=== PATIENT | female | born 1970 | race Caucasian/White ===

== ENCOUNTER 2016-11-13 10:28 | Day surgery (SDCO) | payer MEDICARE, OTHER ==
[~2016-11-13] VITALS: Ht 157.5 cm; Wt 97.6 kg
[2016-11-13 11:14] LABS: CREATININE 0.6 mg/dL (0.5-1.0); POTASSIUM 4.3 mmol/L (3.5-5.1)
[2016-11-14 06:56] LABS: HGB 11.2 g/dl (12.5-16.0); MCH 29.3 pg (25.0-31.0); MCV 91.6 fL (78.0-100.0); MPV 10.4 fL (6.0-9.5); RBC 3.82 M/uL (4.20-5.40); RDW 13.3 % (11.5-14.0); WBC 15.1 K/uL (4.0-10.5)
[2016-11-14 07:27] LABS: ALBUMIN 3.7 g/dL (3.5-5.0); BILIRUBIN - TOTAL 0.7 mg/dL (0.1-1.0); CREATININE 0.7 mg/dL (0.5-1.0); GLOBULIN (CALCULATION) 2.3 g/dL (2.2-4.2); POTASSIUM 4.5 mmol/L (3.5-5.1)
[2016-11-14 10:38] LABS: AMYLASE 16 U/L (28-100); LIPASE 10 U/L (13-60)
[2016-11-15 05:18] LABS: HCT 32.9 % (37.0-47.0); HGB 10.4 g/dl (12.5-16.0); MCH 29.1 pg (25.0-31.0); MCHC 31.6 g/dL (32.0-36.0); MCV 92.2 fL (78.0-100.0); MPV 10.2 fL (6.0-9.5); RBC 3.57 M/uL (4.20-5.40); RDW 13.3 % (11.5-14.0); WBC 13.1 K/uL (4.0-10.5)
[2016-11-15] MEDS ORDERED: ASPIRIN CHEWABL81 MG PO (09:43)
[2016-11-15] MEDS ORDERED: ATARAX25 MG PO (09:43)
[2016-11-15] MEDS ORDERED: PLAVIX75 MG PO (09:44)
[2016-11-15] MEDS ORDERED: DIGITEK125 MCG PO (09:44)
[2016-11-15] MEDS ORDERED: BACLOFEN 10MG T10 MG PO (09:44)
[2016-11-15] MEDS ORDERED: TOPROL XL 25MG25 MG PO (09:44)
[2016-11-15] MEDS ORDERED: ZOCOR20 MG PO (09:44)
[2016-11-15] MEDS ORDERED: LASIX40 MG PO (09:45)
[2016-11-15] MEDS ORDERED: LYRICA100 MG PO (09:45)
[2016-11-15] MEDS ORDERED: CARAFATE1 GM PO (09:45)
[2016-11-15] MEDS ORDERED: PROZAC20 MG PO (09:45)
[2016-11-15] MEDS ORDERED: PROTONIX 40MG T40 MG PO (09:46)
[2016-11-15] MEDS ORDERED: ZOFRAN4 MG PO (09:46)
[2016-11-15] MEDS ORDERED: CERTAGEN1 EACH PO (09:46)
[2016-11-15] MEDS ORDERED: AMBIEN10 MG PO (09:46)
[2016-11-15] MEDS ORDERED: K-DUR20 MEQ PO (09:46)
[2016-11-15] MEDS ORDERED: ROPINIROLE HCL3 MG PO (09:46)
[2016-11-15] MEDS ORDERED: NORCO 5-325 TA1 EACH PO (09:47)
== END 2016-11-15 11:35 | disposition home or self-care (01) ==
LOC: FAS 10:28 → FMS 17:15
PROVIDERS: ADMIT Surgery
DX: K81.1 Chronic cholecystitis (principal); R56.9 Unspecified convulsions; Z88.8 Allergy status to other drugs, medicaments and biological substances; Z79.82 Long term (current) use of aspirin; F41.9 Anxiety disorder, unspecified; M79.7 Fibromyalgia; Z79.01 Long term (current) use of anticoagulants; Z79.02 Long term (current) use of antithrombotics/antiplatelets; Z98.890 Other specified postprocedural states; G47.30 Sleep apnea, unspecified; Z95.1 Presence of aortocoronary bypass graft; I50.9 Heart failure, unspecified; E78.00 Pure hypercholesterolemia, unspecified; I25.2 Old myocardial infarction; I11.0 Hypertensive heart disease with heart failure
CPT/HCPCS: 36415; 74022; 74300; 80048; 80053; 82150; 83690; 88304; 93005; 94010; 94762; G0378; J0131; J1170; J2405; J2704; J3010; Q9962

== ENCOUNTER → 2017-02-26 | Day surgery (SDC) | payer MEDICARE, OTHER ==
[~2017-02-26] VITALS: Ht 157.5 cm; Wt 100.9 kg
[~2017-02-26] MED LIST: AMBIEN10 MG PO; ASPIRIN CHEWABL81 MG PO; ATARAX25 MG PO; BACLOFEN 10MG T10 MG PO; CARAFATE1 GM PO; CERTAGEN1 EACH PO; DIGITEK125 MCG PO; K-DUR20 MEQ PO; LASIX40 MG PO; LYRICA100 MG PO; NORCO 5-325 TA1 EACH PO; PLAVIX75 MG PO; PROTONIX 40MG T40 MG PO; PROZAC20 MG PO; ROPINIROLE HCL3 MG PO; TOPROL XL 25MG25 MG PO; ZOCOR20 MG PO; ZOFRAN4 MG PO
[2017-02-26 07:36] LABS: CREATININE 0.7 mg/dL (0.5-1.0); POTASSIUM 4.4 mmol/L (3.5-5.1)
== END | disposition home or self-care (01) ==
LOC: FAS 07:30
PROVIDERS: Anesthesiology
DX: K22.70 Barrett's esophagus without dysplasia (principal); K29.80 Duodenitis without bleeding; K29.60 Other gastritis without bleeding; K21.0 Gastro-esophageal reflux disease with esophagitis; K44.9 Diaphragmatic hernia without obstruction or gangrene; M19.90 Unspecified osteoarthritis, unspecified site; I25.2 Old myocardial infarction; I11.0 Hypertensive heart disease with heart failure; I50.9 Heart failure, unspecified; I25.5 Ischemic cardiomyopathy; I34.0 Nonrheumatic mitral (valve) insufficiency; M79.7 Fibromyalgia; G47.30 Sleep apnea, unspecified; F41.9 Anxiety disorder, unspecified; F32.9 Major depressive disorder, single episode, unspecified; Z85.43 Personal history of malignant neoplasm of ovary; Z85.048 Personal history of other malignant neoplasm of rectum, rectosigmoid junction, and anus; Z83.3 Family history of diabetes mellitus; Z81.1 Family history of alcohol abuse and dependence; Z83.49 Family history of other endocrine, nutritional and metabolic diseases; Z80.49 Family history of malignant neoplasm of other genital organs; Z82.3 Family history of stroke; Z98.84 Bariatric surgery status; Z88.5 Allergy status to narcotic agent; Z95.1 Presence of aortocoronary bypass graft; Z95.0 Presence of cardiac pacemaker; Z98.51 Tubal ligation status; Z79.82 Long term (current) use of aspirin; Z79.02 Long term (current) use of antithrombotics/antiplatelets; Z79.899 Other long term (current) drug therapy; Z98.890 Other specified postprocedural states
CPT/HCPCS: 36415; 80048; 84703; J2704

== ENCOUNTER 2020-09-25 13:29 | Emergency (ER) | payer MEDICARE ==
[~2020-09-25 13:29] MED LIST changes: +ASPIR-LOW81 MG PO; +BACTRIM DS TAB1 EAC1 PO; +BENADRYL25 MG PO; +BENTYL10 MG PO; +CELEBREX100 MG PO; +ENTRESTO 49 MG1 EACH PO; +FIBER; +FLEXERIL5 MG PO; +GLUCOPHAGE XR500 MG PO; +IBUPROFEN800 MG PO; +LIDOCAINE-PRIL1 EACH TOP; +LYRICA 150MG C150 MG PO; +LYRICA 50MG CAP50 MG PO; +MIRAPEX0.25 MG PO; +MIRAPEX1 MG PO; +MOBIC15 MG PO; +MOBIC7.5 MG PO; +NITROQUIK SL0.4 MG SL; +ONE DAILY COMP1 EACH PO; +PAMELOR25 MG PO; +PROBIOTIC1 EAC1 PO; +PROTONIX40 M1 PO; +ROPINIROLE HCL6 MG PO; +STOOL SOFTENER1 EACH PO; +TIZANIDINE HCL4 M1 PO; +VITAMIN B-12500 MCG PO; +VITAMIN D35000 UNIT PO
[2020-09-25 14:16] LABS: BASOPHIL 0.5 % (0-2); EOSINOPHIL 1.1 % (0-5); HCT 42.6 % (37.0-47.0); HGB 13.8 g/dl (12.5-16.0); LYMPHOCYTE 38.2 % (15-48); MCH 29.9 pg (25.0-31.0); MCHC 32.4 g/dL (32.0-36.0); MCV 92.2 fL (78.0-100.0); MONOCYTE 6.5 % (0-12); MPV 10.6 fL (6.0-9.5); NEUTROPHIL 53.5 % (41-80); NRBC 0; PLT 294 K/uL (150-400); RBC 4.62 M/uL (4.20-5.40); RDW 13.1 % (11.5-14.0); WBC 10.3 K/uL (4.0-10.5)
[2020-09-25 14:35] LABS: ALBUMIN 3.7 g/dL (3.4-5.0); BILIRUBIN - TOTAL 0.4 mg/dL (0.2-1.0); BUN/CREAT RATIO (CALC) 16.5 RATIO; CREATININE 0.91 mg/dL (0.51-0.95); GLOBULIN (CALCULATION) 4.2 g/dL; POTASSIUM 3.7 mmol/L (3.5-5.1); TOTAL PROTEIN 7.9 g/dL (6.4-8.2)
[2020-09-25 14:47] LABS: INR 1.04 (0.9-1.2); PROTHROMBIN TIME 12.9 SECONDS (11.4-13.6); PTT 25.1 SECONDS (22.2-34.7)
== END 2020-09-25 17:50 | disposition home or self-care (01) ==
LOC: FER 13:29
PROVIDERS: Emergency Medicine
DX: R07.89 Other chest pain (principal)
CPT/HCPCS: 36415; 71045; 71275; 80053; 84484; 85025; 85379; 85610; 85730; 93005; J2270; J2405; Q9967

== ENCOUNTER 2020-11-04 21:46 | Emergency (ER) | payer MEDICARE, OTHER ==
[2020-11-04 22:39] LABS: BASOPHIL 0.5 % (0-2); EOSINOPHIL 0.9 % (0-5); HCT 41.5 % (37.0-47.0); HGB 13.5 g/dl (12.5-16.0); LYMPHOCYTE 38.6 % (15-48); MCH 29.7 pg (25.0-31.0); MCHC 32.5 g/dL (32.0-36.0); MCV 91.2 fL (78.0-100.0); MONOCYTE 6.7 % (0-12); MPV 10.4 fL (6.0-9.5); NEUTROPHIL 52.9 % (41-80); NRBC 0; PLT 319 K/uL (150-400); RBC 4.55 M/uL (4.20-5.40); RDW 13.2 % (11.5-14.0); WBC 10.1 K/uL (4.0-10.5)
[2020-11-04 22:58] LABS: ALBUMIN 3.9 g/dL (3.4-5.0); BILIRUBIN - TOTAL 0.5 mg/dL (0.2-1.0); BUN/CREAT RATIO (CALC) 33.3 RATIO; CREATININE 0.66 mg/dL (0.51-0.95); POTASSIUM 3.6 mmol/L (3.5-5.1); TOTAL PROTEIN 7.9 g/dL (6.4-8.2)
[2020-11-04 23:01] LABS: INR 1.2 (0.9-1.2); PROTHROMBIN TIME 14.4 SECONDS (11.4-13.6)
== END 2020-11-05 01:20 | disposition other institution (70) ==
LOC: FER 21:46
PROVIDERS: Emergency Medicine
DX: I21.3 ST elevation (STEMI) myocardial infarction of unspecified site (principal); R79.89 Other specified abnormal findings of blood chemistry; I11.0 Hypertensive heart disease with heart failure; I50.9 Heart failure, unspecified; E11.9 Type 2 diabetes mellitus without complications; E78.5 Hyperlipidemia, unspecified; Z95.810 Presence of automatic (implantable) cardiac defibrillator; Z88.6 Allergy status to analgesic agent; Z79.899 Other long term (current) drug therapy
CPT/HCPCS: 36415; 71045; 80053; 83735; 83880; 84484; 85025; 85610; 85730; 93005; J1644; J2405

== ENCOUNTER 2021-06-15 07:40 | Emergency (ER) | payer MEDICARE, OTHER ==
[2021-06-15 08:44] LABS: BASOPHIL 0.1 % (0-2); EOSINOPHIL 0.3 % (0-5); HCT 41.3 % (37.0-47.0); HGB 12.9 g/dl (12.5-16.0); LYMPHOCYTE 20.5 % (15-48); MCH 29.2 pg (25.0-31.0); MCHC 31.2 g/dL (32.0-36.0); MCV 93.4 fL (78.0-100.0); MONOCYTE 8.3 % (0-12); MPV 10.9 fL (6.0-9.5); NEUTROPHIL 70.5 % (41-80); NRBC 0; PLT 225 K/uL (150-400); RBC 4.42 M/uL (4.20-5.40); RDW 13.3 % (11.5-14.0); WBC 7.6 K/uL (4.0-10.5)
[2021-06-15 08:49] LABS: INR 1.06 (0.9-1.2); PROTHROMBIN TIME 13.2 SECONDS (11.8-13.4); PTT 31.7 SECONDS (24.4-34.7)
[2021-06-15 08:50] LABS: D-DIMER 0.98 ug/mLFEU (0.00-0.41)
[2021-06-15 08:51] LABS: LACTIC ACID 2.9 mmol/L (0.4-1.9)
[2021-06-15 08:55] LABS: ALBUMIN 3.4 g/dL (3.4-5.0); BILIRUBIN - TOTAL 0.3 mg/dL (0.2-1.0); BUN/CREAT RATIO (CALC) 20.3 RATIO; CREATININE 0.69 mg/dL (0.51-0.95); GLOBULIN (CALCULATION) 4.4 g/dL; POTASSIUM 4.2 mmol/L (3.5-5.1); TOTAL PROTEIN 7.8 g/dL (6.4-8.2)
[2021-06-15 09:01] LABS: BILIRUBIN NEGATIVE (NEGATIVE); BLOOD TRACE-INTACT Ery/uL (NEGATIVE); CLARITY CLEAR (CLEAR); COLOR YELLOW (YELLOW); GLUCOSE (U) 3+ mg/dL (NORMAL); LEUKOCYTES NEGATIVE Leu/uL (NEGATIVE); NITRITE NEGATIVE (NEGATIVE); PROTEIN NEGATIVE (NEGATIVE); SPECIFIC GRAVITY 1.025 (1.001-1.030); UROBILINOGEN 0.2 mg/dL (0.2-1.0); pH 5.5 (5.0-9.0)
[2021-06-15 09:08] LABS: CORONAVIRUS 2019 SARS-COV-2 NEGATIVE (NEGATIVE); INFLUENZA A NAA NEGATIVE (NEGATIVE)
[2021-06-15 09:19] LABS: URINARY RBC RARE; URINARY WBC RARE
[2021-06-15] MEDS ORDERED: LEVAQUIN500 MG PO (12:30)
== END 2021-06-15 14:14 | disposition home or self-care (01) ==
LOC: FER 07:40
PROVIDERS: Emergency Medicine
DX: J69.0 Pneumonitis due to inhalation of food and vomit (principal); I11.0 Hypertensive heart disease with heart failure; I50.20 Unspecified systolic (congestive) heart failure; I25.2 Old myocardial infarction; J44.9 Chronic obstructive pulmonary disease, unspecified; E11.9 Type 2 diabetes mellitus without complications; E66.01 Morbid (severe) obesity due to excess calories; Z20.822 Contact with and (suspected) exposure to COVID-19; Z95.1 Presence of aortocoronary bypass graft; Z95.810 Presence of automatic (implantable) cardiac defibrillator; Z79.82 Long term (current) use of aspirin; Z79.02 Long term (current) use of antithrombotics/antiplatelets; Z79.899 Other long term (current) drug therapy; Z88.5 Allergy status to narcotic agent
CPT/HCPCS: 36415; 36600; 71045; 71275; 80053; 81001; 82803; 83605; 83735; 83880; 84145; 84484; 85025; 85379; 85610; 85730; 87040; 87088; 93005; J1956; J2543; J7040; Q9967; U0002